=== PATIENT | male | born 1970 | race Caucasian/White ===

== ENCOUNTER → 2016-06-30 | Outpatient (CLI) | payer OTHER ==
[2016-06-30 12:25] LABS: MEAN CORPUSCULAR HGB CONC 34.2 g/dl (32.0-36.5); MEAN CORPUSCULAR VOLUME 96.4 fl (80.0-96.0); RED CELL DISTRIBUTION WIDTH 13.1 % (11.5-14.5); WHITE BLOOD COUNT 5.2 K/mm3 (4.0-10.0)
[2016-06-30 12:59] LABS: BLOOD UREA NITROGEN 13 MG/DL (7-18); CREATININE FOR GFR 1.12 MG/DL (0.70-1.30); GLUCOSE, FASTING 104 MG/DL (70-105)
[2016-06-30 13:00] LABS: ALBUMIN/GLOBULIN RATIO 1.08 (1.00-1.93); ALKALINE PHOSPHATASE 65 U/L (45-117); ALT/SGPT 22 U/L (12-78); ANION GAP 9 MEQ/L (8-16); AST/SGOT 17 U/L (15-37); BILIRUBIN,TOTAL 0.4 MG/DL (0.2-1.0); CALCIUM LEVEL 8.6 MG/DL (8.5-10.1); CARBON DIOXIDE LEVEL 23 MEQ/L (21-32); CHLORIDE LEVEL 110 MEQ/L (98-107); GLOMERULAR FILTRATION RATE > 60.0 (>60); POTASSIUM SERUM 4.2 MEQ/L (3.5-5.1); SODIUM LEVEL 142 MEQ/L (136-145); TOTAL PROTEIN 7.7 GM/DL (6.4-8.2)
== END ==
LOC: M LAB 11:25
PROVIDERS: ATTEND Family Medicine
DX: Z79.899 Other long term (current) drug therapy (principal)

== ENCOUNTER 2017-04-20 12:35 | Emergency (ER) | payer OTHER ==
[2017-04-20] MEDS: GABAPENTIN 300 MG CAP PO (14:25)
[2017-04-20] MEDS: PERCOCET 5MG/325MG TAB PO (14:26)
== END 2017-04-20 16:09 | disposition home or self-care (01) ==
LOC: M ED 12:35
DX: M54.12 Radiculopathy, cervical region (principal); F17.210 Nicotine dependence, cigarettes, uncomplicated; Z79.899 Other long term (current) drug therapy
CPT/HCPCS: 70490

== ENCOUNTER → 2017-06-10 | Outpatient (CLI) | payer OTHER | LOC: M LRY 12:52 | DX: M54.5 Low back pain (principal) | CPT/HCPCS: 72110 ==

== ENCOUNTER 2018-04-06 05:12 | Emergency (ER) | payer OTHER ==
[~2018-04-06] VITALS: Ht 180.3 cm; Wt 76.4 kg
[~2018-04-06 05:12] MED LIST: CLON1TAB8; HYDR-3713; IBUP-1022 PO; LORA-243; NEUR300C PO; PERC5TAB12 PO; TIZA-208
[2018-04-06] MEDS ORDERED: CETI10TA PO (05:29)
[2018-04-06] MEDS ORDERED: VENTAER INH ×2 (05:29→09:53)
[2018-04-06] MEDS ORDERED: NS 2,290 ML in APPROPRIATE DILUENT 1 EA IV ONE (05:45)
[2018-04-06 05:55] LABS: BASO % 0.2 % (0.0-1.0); EOS % 0.1 % (0.0-3.0); HEMATOCRIT 44.1 % (42.0-52.0); HEMOGLOBIN 15.6 g/dl (13.5-17.5); LYMPH # 0.6 10^3/uL (1.5-4.5); LYMPH % 6.9 % (24.0-44.0); MEAN CORPUSCULAR HEMOGLOBIN 32.2 pg (27.0-33.0); MEAN CORPUSCULAR HGB CONC 35.4 g/dl (32.0-36.5); MEAN CORPUSCULAR VOLUME 90.9 fl (80.0-96.0); MONO # 0.5 10^3/uL (0.0-0.8); MONO % 5.4 % (0.0-5.0); NEUTROPHILS # 8.1 10^3/uL (1.8-7.7); PLATELET COUNT, AUTOMATED 224 10^3/uL (150-450); RED BLOOD COUNT 4.85 10^6/uL (4.30-6.10); WHITE BLOOD COUNT 9.3 10^3/uL (4.0-10.0)
[2018-04-06] MEDS ORDERED: ACETAMINOPHEN TAB 650MG DOSE (2X325MG) PO ONE (06:00)
[2018-04-06] MEDS ORDERED: ACETAMINOPHEN 325 MG TAB As Ordered ONE (06:03)
[2018-04-06] MEDS ORDERED: ONDANSETRON 4MG/2ML VIAL (J2405) IV ONE (06:15)
[2018-04-06] MEDS ORDERED: IPRATROPIUM 0.5MG/ALBUTEROL 2.5MG INH SOL UD 3ML (DUONEB)(J7620) NEB ONE (06:15)
[2018-04-06 06:20] LABS: ALT/SGPT 36 U/L (12-78); BILIRUBIN,DIRECT < 0.1 MG/DL (0.0-0.2); BILIRUBIN,TOTAL 0.3 MG/DL (0.2-1.0); BLOOD UREA NITROGEN 7 MG/DL (7-18); CALCIUM LEVEL 8.5 MG/DL (8.5-10.1); CARBON DIOXIDE LEVEL 26 MEQ/L (21-32); CHLORIDE LEVEL 104 MEQ/L (98-107); CREATININE FOR GFR 1.08 MG/DL (0.70-1.30); GLOMERULAR FILTRATION RATE > 60.0 (>60); GLUCOSE, FASTING 91 MG/DL (70-100); POTASSIUM SERUM 3.8 MEQ/L (3.5-5.1); SODIUM LEVEL 138 MEQ/L (136-145); TOTAL PROTEIN 7.6 GM/DL (6.4-8.2)
[2018-04-06] MEDS ORDERED: AZITHROMYCIN INJ 500 MG, VIAL MATE ADAPTER 1 EACH in D5W 250 ML IV ONE (06:30)
[2018-04-06] MEDS ORDERED: cefTRIAXone SOD 1 GM in D5W MINI-BAG PLUS 50 ML IV ONE (06:30)
--- NOTE | 2018-04-06 06:49 | REPVR ---
EXAM: CT Head Without Contrast EXAM DATE/TIME: 04/06/2018 6:27 AM CLINICAL HISTORY: 47 years old, male; Pain; Headache; Headache not specified; Additional info: Severe headache TECHNIQUE: Axial computed tomography images of the head/brain without contrast. All CT scans at this facility use at least one of these dose optimization techniques: automated exposure control; mA and/or kV adjustment per patient size (includes targeted exams where dose is matched to clinical indication); or iterative reconstruction. COMPARISON: CT Head without contrast 09/03/2015 11:40 PM FINDINGS: Brain: Normal. No hemorrhage. No significant white matter disease. No edema. Ventricles: Normal. No ventriculomegaly. Bones/joints: Unremarkable. No acute fracture. Sinuses: Visualized sinuses are unremarkable. No acute sinusitis. Mastoid air cells: Visualized mastoid air cells are unremarkable. No mastoid effusion. Soft tissues: Unremarkable. IMPRESSION: Negative noncontrast head CT without change from 09/03/2015. Electronically signed by: Ryan Sevilla On 04/06/2018 06:49:25 AM
[2018-04-06] MEDS ORDERED: KETOROLAC 30 MG/ML VIAL (J1885) IV ONE (07:00)
--- NOTE | 2018-04-06 07:36 | REP ---
Clinical: Systemic inflammatory response syndrome . Comparison: 05/29/2009 . Technique: PA and lateral. Findings: The mediastinum and cardiac silhouette are normal. The lung marshall are clear and without acute consolidation, effusion, or pneumothorax. The skeletal structures are intact and normal. Impression: 1. No acute cardiopulmonary process. Electronically Signed by John Gutierrez MD 04/06/2018 07:28 A
[2018-04-06] MEDS ORDERED: OSEL75CA PO (08:26)
[2018-04-06] MEDS ORDERED: IBUP-1022 PO (08:26)
[2018-04-06] MEDS ORDERED: ONDA4TAB6 PO (08:26)
[2018-04-06] MEDS ORDERED: METOCLOPRAMIDE INJ 10MG/2ML VIAL (J2765) IV ONE (08:30)
[2018-04-06] MEDS ORDERED: diphenhydrAMINE INJ 50MG/ML VIAL (J1200) IV ONE (08:30)
[2018-04-06] MEDS ORDERED: clonazePAM 1 MG TAB PO ONE (08:45)
[2018-04-06] MEDS ORDERED: OSELTAMIVIR PHOSPHATE 75 MG CAP (TAMIFLU) PO ONE (08:45)
[2018-04-06 09:23] LABS: APPEARANCE, URINE CLEAR (CLEAR); BACTERIA, URINE AUTO NEGATIVE (NEGATIVE); BILIRUBIN, URINE AUTO NEGATIVE (NEGATIVE); BLOOD, URINE BLOOD NEGATIVE (NEGATIVE); COLOR, URINE YELLOW (YELLOW); GLUCOSE, URINE (UA) AUTO NEGATIVE (NEGATIVE); KETONE, URINE AUTO NEGATIVE (NEGATIVE); LEUKOCYTE ESTERASE, URINE AUTO NEGATIVE (NEGATIVE); MUCUS, URINE SMALL (NEGATIVE); NITRITE, URINE AUTO NEGATIVE (NEGATIVE); PROTEIN, URINE AUTO NEGATIVE (NEGATIVE); RBC, URINE AUTO 0 /HPF (0-3); SPECIFIC GRAVITY URINE AUTO 1.009 (1.002-1.035); SQUAMOUS EPITHELIAL CELL UR AU 0 /HPF (0-6); UROBILINOGEN, URINE AUTO 0.2 mg/dL (0.0-2.0); WBC, URINE AUTO 0 /HPF (0-3)
[2018-04-06 10:03] VITALS: BP 103/57
== END 2018-04-06 10:36 | disposition home or self-care (01) ==
LOC: M ED 05:12
DX: J09.X2 Influenza due to identified novel influenza A virus with other respiratory manifestations (principal); G43.909 Migraine, unspecified, not intractable, without status migrainosus; M54.9 Dorsalgia, unspecified; Z72.0 Tobacco use; Z79.899 Other long term (current) drug therapy; Z88.1 Allergy status to other antibiotic agents; Z91.041 Radiographic dye allergy status
CPT/HCPCS: 70450; 71046; 80048; 80076; 81001; 83605; 85025; 87040; 87086; 87486; 87581; 87633; 87798; 93041; 94640; 94760; 96374; 96375; 99285; J0456; J0696; J1200; J1885; J2405; J2765

== ENCOUNTER → 2018-08-07 | Outpatient (CLI) | payer MEDICAID ==
[~2018-08-07] MED LIST changes: +CETI10TA PO; +ONDA4TAB6 PO; +OSEL75CA PO; -TIZA-208; +TIZA4TAB4; +VENTAER INH
[2018-08-07 11:11] LABS: BASO % 0.5 % (0.0-1.0); EOS # 0.1 10^3/uL (0.0-0.50); EOS % 1.7 % (0.0-3.0); HEMOGLOBIN 16.3 g/dl (13.5-17.5); LYMPH # 1.8 10^3/uL (1.5-4.5); LYMPH % 27.2 % (24.0-44.0); MEAN CORPUSCULAR HEMOGLOBIN 33.3 pg (27.0-33.0); MEAN CORPUSCULAR HGB CONC 34.7 g/dl (32.0-36.5); MEAN CORPUSCULAR VOLUME 96.1 fl (80.0-96.0); MONO # 0.4 10^3/uL (0.0-0.8); MONO % 6.8 % (0.0-5.0); NEUTROPHILS # 4.1 10^3/uL (1.8-7.7); NEUTROPHILS % 63.6 % (36.0-66.0); PLATELET COUNT, AUTOMATED 246 10^3/uL (150-450); RED BLOOD COUNT 4.89 10^6/uL (4.30-6.10); WHITE BLOOD COUNT 6.5 10^3/uL (4.0-10.0)
[2018-08-07 11:38] LABS: ALBUMIN 4.1 GM/DL (3.2-5.2); ALT/SGPT 29 U/L (12-78); BILIRUBIN,TOTAL 0.2 MG/DL (0.2-1.0); BLOOD UREA NITROGEN 11 MG/DL (7-18); CALCIUM LEVEL 8.9 MG/DL (8.5-10.1); CARBON DIOXIDE LEVEL 27 MEQ/L (21-32); CHLORIDE LEVEL 108 MEQ/L (98-107); CREATININE FOR GFR 1.02 MG/DL (0.70-1.30); GLOMERULAR FILTRATION RATE > 60.0 (>60); GLUCOSE, FASTING 99 MG/DL (70-100); POTASSIUM SERUM 4.4 MEQ/L (3.5-5.1); SODIUM LEVEL 142 MEQ/L (136-145)
--- NOTE | 2018-08-10 22:50 | ECGEPIP ---
[facility] Test Date: 2018-08-07 Pat Name: RADHA GRIFFIN Department: Room: - Gender: Male Perinatal Tech: TRISTAN : 1970 Requested By: DANN AMBRIZ Order Number: [id number] Reading MD: Nate Lowry Measurements Intervals [place] Rate: 86 P: 73 MI: 166 QRS: 47 QRSD: 97 T: 44 QT: 359 QTc: 431 Interpretive Statements SINUS RHYTHM WITH SINUS ARRHYTHMIA LEFT ATRIAL ENLARGEMENT ST ELEVATION, PROBABLY EARLY REPOLARIZATION TALL T-WAVES, SUGGESTS HYPERKALEMIA No prior tracing in the system Electronically Signed on 08-10-2018 22:49:53 EDT by Nate Lowry
== END ==
LOC: M LAB 10:21
PROVIDERS: ATTEND Family Medicine
DX: Z01.818 Encounter for other preprocedural examination (principal); I51.7 Cardiomegaly

== ENCOUNTER 2018-08-11 10:23 | Day surgery (SDC) | payer MEDICAID, SELFPAY ==
[~2018-08-11] VITALS: Ht 177.8 cm; Wt 68.0 kg
[~2018-08-11 10:23] MED LIST changes: +LIDOCAINE 1% MDV 20ML VIAL SQ PRN; +LR 1,000 ML IV ONE
[2018-08-11] MEDS ORDERED: ONDANSETRON 4MG/2ML VIAL (J2405) As Ordered ONE (10:50)
[2018-08-11] MEDS ORDERED: ROCURONIUM BROMIDE 50 MG/5 ML VIAL As Ordered ONE (10:50)
[2018-08-11] MEDS ORDERED: LIDOCAINE 2% INJ 100 MG/5 ML SDV (FOR ANES.) As Ordered ONE (10:50)
[2018-08-11] MEDS ORDERED: PROPOFOL 200 MG/20 ML VIAL As Ordered ONE (10:50)
[2018-08-11] MEDS ORDERED: SUGAMMADEX SODIUM 500 MG/5 ML VIAL (BRIDION) As Ordered ONE (10:50)
[2018-08-11] MEDS ORDERED: dexameTHASONE 4 MG/ML 1ML VIAL (J1100) As Ordered ONE (10:50)
[2018-08-11] MEDS ORDERED: KETOROLAC 60 MG/2 ML VIAL (J1885) As Ordered ONE (10:50)
[2018-08-11] MEDS ORDERED: fentaNYL 250 MCG/5 ML INJECTION (J3010) As Ordered ONE (10:51)
[2018-08-11] MEDS ORDERED: MIDAZOLAM INJ 2 MG/2 ML VIAL (J2250) As Ordered ONE ×2 (10:51→11:31)
[2018-08-11] MEDS ORDERED: BUPIVACAINE/EPIN 0.25% 30 ML VIAL As Ordered ONE (11:30)
[2018-08-11] MEDS ORDERED: SCOPOLAMINE 1MG TRANSDERMAL PATCH As Ordered ONE (11:32)
[2018-08-11] MEDS ORDERED: SCOPOLAMINE 1MG TRANSDERMAL PATCH TOP ONE (11:45)
[2018-08-11] MEDS ORDERED: HYDROmorphone HCL 2 MG/ML 1ML VIAL (J1170) As Ordered ONE (12:14)
[2018-08-11] MEDS ORDERED: KETAMINE HCL 200 MG/20 ML VIAL As Ordered ONE (12:37)
[2018-08-11] MEDS ORDERED: MIDAZOLAM INJ 5 MG/ML VIAL (J2250) As Ordered ONE (12:38)
[2018-08-11] MEDS ORDERED: LR 1,000 ML IV SCH (13:45)
[2018-08-11] MEDS ORDERED: ONDANSETRON 4MG/2ML VIAL (J2405) IV PRN (13:45)
[2018-08-11] MEDS ORDERED: HYDROMORPHONE HCL 0.5 MG/ 0.5 ML SYRINGE (J1170 PER 1) IV PRN (13:45)
[2018-08-11] MEDS ORDERED: NORCO, ANEXSIA 5/325MG TABLET (HYDROcodone/ACETAMINOPHEN) PO PRN (14:00)
[2018-08-11] MEDS: PERCOCET 5MG/325MG TAB PO PRN ×2 (14:10→14:43)
--- NOTE | 2018-08-11 14:27 | RO ---
DATE OF PROCEDURE: 08/11/2018 PREOPERATIVE DIAGNOSIS: Right inguinal hernia. POSTOPERATIVE DIAGNOSIS: Right inguinal hernia. PROCEDURE: Robotic repair of right inguinal hernia. SURGEON: Dr. Parish Kong MUSIC MINISTER: Naye Graham ANESTHESIA: Genera. ESTIMATED BLOOD LOSS: 5. COMPLICATIONS: None. INDICATIONS FOR PROCEDURE: The patient is a 47-year-old male who presents with a large right inguinal hernia that is reducible. Recommendation is to proceed with robotic repair. Risks and benefits of the procedure not limited to, but including bleeding, infection, hernia recurrence, hernia formation, damage to surrounding structures, need for further surgery were discussed in detail with the patient and informed consent was obtained and the procedure was planned. DESCRIPTION OF PROCEDURE: The patient back to operating room seven and after sufficient sedation the abdomen was sterilely prepped and draped. Next a time-out was done to confirm proper patient and proper procedure. Following that, a stab incision was made in the left lower quadrant. The Veress needle was inserted and the abdomen was insufflated to 15 mmHg. Next, an 8 mm supraumbilical midline incision was made and the 8 mm robotic OptiVu port was used to gain access. Once the abdomen was entered, Veress needle site was examined and there were no signs of any injury. The Veress needle was then removed. Two more 8 mm ports were placed in the left and right midabdomen. The robot was then docked from the console. Started with a curved incision into peritoneum in the right lower quadrant, dissecting in the preperitoneal space, starting laterally and working medially circumferentially around the hernia sac and then medially all way down to the pubic symphysis. Once that was completed I continued to retract slowly on the hernia sac and dissecting it free circumferentially until it was completely reduced. Once that was completed, the Bard 3DMax light mesh was placed into the right preperitoneal space and sutured to the pubic symphysis with #2-0 Vicryl suture. The #2-0 V-Loc was then used to reapproximate the peritoneal edges incorporating the redundant hernia sac into the closure. Once this was all completed, the abdomen was examined and the abdomen was then desufflated. Skin incisions were closed with #4-0 Vicryl subcuticular sutures. The abdomen was cleaned and dried. Steri-Strips, 4x4 and tape were applied, thus ending the procedure.
[2018-08-11] MEDS: fentaNYL 100 MCG/2 ML INJECTION (J3010) IV PRN ×4 (14:29→14:45)
[2018-08-11 16:40] VITALS: BP 145/100
== END 2018-08-11 16:40 | disposition home or self-care (01) ==
LOC: M SDC 10:23
PROVIDERS: ATTEND Surgery
DX: K40.90 Unilateral inguinal hernia, without obstruction or gangrene, not specified as recurrent (principal); G43.909 Migraine, unspecified, not intractable, without status migrainosus; F41.9 Anxiety disorder, unspecified; F32.9 Major depressive disorder, single episode, unspecified; Z79.899 Other long term (current) drug therapy; Z79.51 Long term (current) use of inhaled steroids
CPT/HCPCS: 49650; C1781; J0690; J1100; J1170; J1885; J2250; J2405; J3010

== ENCOUNTER → 2019-03-06 | Outpatient (REF) | payer OTHER ==
[~2019-03-06] MED LIST changes: -LIDOCAINE 1% MDV 20ML VIAL SQ PRN; -LR 1,000 ML IV ONE
== END ==
LOC: M SFHCCLAY 13:07
PROVIDERS: ATTEND Family Medicine
DX: M54.5 Low back pain (principal)

== ENCOUNTER 2019-07-26 14:20 | Emergency (ER) | payer OTHER ==
[~2019-07-26] VITALS: Ht 180.3 cm; Wt 66.5 kg
[2019-07-26] MEDS ORDERED: IBUP80TA (14:27)
[2019-07-26] MEDS ORDERED: NORCO, ANEXSIA 5/325MG TABLET (HYDROcodone/ACETAMINOPHEN) PO ONE (15:30)
[2019-07-26 15:37] LABS: BASO # 0.1 10^3/uL (0.0-0.2); BASO % 0.9 % (0.0-1.0); EOS # 0.1 10^3/uL (0.0-0.5); EOS % 0.9 % (0.0-3.0); HEMATOCRIT 46.4 % (42.0-52.0); LYMPH % 30.7 % (24.0-44.0); MEAN CORPUSCULAR HEMOGLOBIN 31.9 pg (27.0-33.0); MEAN CORPUSCULAR HGB CONC 34.5 g/dl (32.0-36.5); MEAN CORPUSCULAR VOLUME 92.6 fl (80.0-96.0); MONO # 0.5 10^3/uL (0.0-0.8); MONO % 7.4 % (0.0-5.0); NEUTROPHILS # 3.8 10^3/uL (1.5-8.5); NEUTROPHILS % 59.9 % (36.0-66.0); PLATELET COUNT, AUTOMATED 277 10^3/uL (150-450); RED BLOOD COUNT 5.01 10^6/uL (4.30-6.10); WHITE BLOOD COUNT 6.4 10^3/uL (4.0-10.0)
--- NOTE | 2019-07-26 16:05 | REP ---
Two views right forearm: 07/26/2019. Indication: Pain following injury. Comparison: None. Findings: There is no acute fracture, subluxation or dislocation. Alignment is anatomic. No lytic or blastic lesions are present. Impression: No acute fracture. Electronically Signed by Devonte Thapa DO 07/26/2019 03:56 P
[2019-07-26 16:28] VITALS: BP 161/99
[2019-07-26] MEDS ORDERED: NORC1TAB7 PO (16:29)
[2019-07-26] MEDS ORDERED: NAPR-837 PO (16:29)
== END 2019-07-26 16:45 | disposition home or self-care (01) ==
LOC: M ED 14:20
DX: M65.231 Calcific tendinitis, right forearm (principal); J45.909 Unspecified asthma, uncomplicated; Z79.899 Other long term (current) drug therapy; Z88.1 Allergy status to other antibiotic agents; Z91.041 Radiographic dye allergy status; Z91.048 Other nonmedicinal substance allergy status; F17.210 Nicotine dependence, cigarettes, uncomplicated

== ENCOUNTER 2022-05-03 10:50 | Emergency (ER) | payer OTHER ==
[~2022-05-03] VITALS: Ht 180.3 cm; Wt 60.7 kg
[~2022-05-03 10:50] MED LIST changes: +IBUP80TA; +NAPR-837 PO; +NORC1TAB7 PO; +TIZA10TA; -TIZA4TAB4
[2022-05-03 13:38] LABS: BASO # 0.1 10^3/uL (0.0-0.2); BASO % 0.5 % (0.0-1.0); EOS # 0.1 10^3/uL (0.0-0.5); EOS % 0.7 % (0.0-3.0); HEMATOCRIT 46.1 % (42.0-52.0); HEMOGLOBIN 15.3 g/dl (13.5-17.5); LYMPH # 2.1 10^3/uL (1.5-5.0); LYMPH % 19.9 % (24.0-44.0); MEAN CORPUSCULAR HEMOGLOBIN 30.2 pg (27.0-33.0); MEAN CORPUSCULAR HGB CONC 33.2 g/dl (32.0-36.5); MEAN CORPUSCULAR VOLUME 91.1 fl (80.0-96.0); MONO # 0.4 10^3/uL (0.0-0.8); MONO % 3.7 % (2.0-8.0); NEUTROPHILS % 74.8 % (36.0-66.0); PLATELET COUNT, AUTOMATED 299 10^3/uL (150-450); RED BLOOD COUNT 5.06 10^6/uL (4.30-6.10); WHITE BLOOD COUNT 10.7 10^3/uL (4.0-10.0)
[2022-05-03 14:05] LABS: LIPASE 24 U/L (12-53)
[2022-05-03 14:08] LABS: ALBUMIN 4.5 G/DL (3.2-5.2); ALKALINE PHOSPHATASE 65 U/L (46-116); ALT/SGPT 9 U/L (7.0-40); AST/SGOT 13 U/L (<34); BILIRUBIN,DIRECT 0.1 MG/DL (<0.4); BILIRUBIN,TOTAL 0.4 MG/DL (0.3-1.2); BLOOD UREA NITROGEN 12 MG/DL (9-23); CALCIUM LEVEL 8.8 MG/DL (8.5-10.1); CARBON DIOXIDE LEVEL 28 MMOL/L (20-31); CHLORIDE LEVEL 104 MMOL/L (98-107); CREATININE FOR GFR 0.77 MG/DL (0.70-1.30); GLOMERULAR FILTRATION RATE > 60.0 (>60); GLUCOSE, FASTING 106 MG/DL (60-100); POTASSIUM SERUM 4.8 MMOL/L (3.5-5.1); SODIUM LEVEL 138 MMOL/L (136-145); TOTAL PROTEIN 7.8 G/DL (5.7-8.2)
[2022-05-03] MEDS ORDERED: SIMETHICONE 80MG CHEW TAB PO STA (16:09)
[2022-05-03] MEDS ORDERED: ALPRAZolam 0.5 MG TAB PO ONE (16:10)
[2022-05-03] MEDS ORDERED: MORPHINE 10 MG/ML 1ML VIAL IM ONE (18:45)
[2022-05-03] MEDS ORDERED: SIME80CH6 PO (19:40)
[2022-05-03 19:47] VITALS: BP 128/78
== END 2022-05-03 19:59 | disposition home or self-care (01) ==
LOC: M ED 10:50
DX: R10.32 Left lower quadrant pain (principal); Z88.1 Allergy status to other antibiotic agents; Z88.8 Allergy status to other drugs, medicaments and biological substances
CPT/HCPCS: 36415; 74176; 76857; 80048; 80076; 81001; 83690; 85025; 96372; 99284; J2270

== ENCOUNTER 2023-03-22 12:17 | Inpatient (IN) | payer MEDICAID, OTHER, SELFPAY ==
[~2023-03-22] VITALS: Ht 177.8 cm; Wt 54.0 kg
[~2023-03-22 12:17] MED LIST changes: +SIME80CH6 PO
[2023-03-22] MEDS: NS 1,000 ML IV ONE (12:57)
[2023-03-22 13:02] LABS: HEMOGLOBIN 12.4 g/dl (13.5-17.5); MEAN CORPUSCULAR HEMOGLOBIN 30.2 pg (27.0-33.0); MEAN CORPUSCULAR HGB CONC 34.4 g/dl (32.0-36.5); MEAN CORPUSCULAR VOLUME 87.8 fl (80.0-96.0); PLATELET COUNT, AUTOMATED 282 10^3/uL (150-450); WHITE BLOOD COUNT 10.2 10^3/uL (4.0-10.0)
[2023-03-22 13:22] LABS: D-DIMER QUANT 6.02 ug/mL (<0.5)
[2023-03-22 13:36] LABS: ALBUMIN 2.6 G/DL (3.2-5.2); ALKALINE PHOSPHATASE 65 U/L (46-116); ALT/SGPT 17 U/L (7.0-40); AST/SGOT 37 U/L (<34); BILIRUBIN,DIRECT < 0.1 MG/DL (<0.4); BILIRUBIN,TOTAL 0.2 MG/DL (0.3-1.2); BLOOD UREA NITROGEN 14 MG/DL (9-23); CALCIUM LEVEL 7.9 MG/DL (8.5-10.1); CARBON DIOXIDE LEVEL 27 MMOL/L (20-31); CHLORIDE LEVEL 104 MMOL/L (98-107); CK-MB VALUE MASS < 1.0 NG/ML (<3.6); CPK CREATINE PHOSPHOKINASE 34 U/L (46-171); CREATININE FOR GFR 0.67 MG/DL (0.70-1.30); GLOMERULAR FILTRATION RATE > 60.0 (>56); GLUCOSE, FASTING 115 MG/DL (60-100); LIPASE 14 U/L (12-53); MB/CK RELATIVE INDEX 2.94 (< OR =4); POTASSIUM SERUM 4.7 MMOL/L (3.5-5.1); SODIUM LEVEL 136 MMOL/L (136-145); TOTAL PROTEIN 6.2 G/DL (5.7-8.2)
[2023-03-22 13:43] LABS: ATYPICAL LYMPH 10 % (0-5); LYMPHOCYTES 3 % (16-44); MONOCYTES 5 % (0-5); NEUTROPHILS 82 % (28-66)
[2023-03-22 13:44] LABS: PLATELET ESTIMATE NORMAL (NORMAL); TOXIC GRANULATION 1+; TOXIC VACUOLATION 1+
[2023-03-22] MEDS ORDERED: IBUP200T46 PO (14:04)
[2023-03-22] MEDS ORDERED: HOME MED LIST COMPLETE! XX SCH (14:05)
[2023-03-22] MEDS: MORPHINE 4 MG/ML 1ML VIAL IV ONE ×2 (14:11→18:55)
[2023-03-22 14:54] LABS: INR 1.17; PROTHROMBIN TIME 14.5 SECONDS (12.5-14.5)
[2023-03-22 14:58] LABS: RSV AMPLIFICATION NEGATIVE (NEGATIVE)
[2023-03-22 14:59] LABS: PARTIAL THROMBOPLASTIN TIME 29.4 SECONDS (24.8-34.2)
[2023-03-22 15:01] LABS: CK-MB VALUE MASS < 1.0 NG/ML (<3.6); CPK CREATINE PHOSPHOKINASE 125 U/L (46-171)
[2023-03-22] MEDS: MAALOX 30 ML SUSP *UDC PO ONE (15:10)
[2023-03-22] MEDS: PANTOPRAZOLE 40MG VIAL IV ONE (15:10)
[2023-03-22] MEDS: diphenhydrAMINE 50MG/ML VIAL IV STA (16:40)
[2023-03-22] MEDS: methylPREDNISolone 125MG 2ML VIAL IV ONE (16:40)
[2023-03-22] MEDS ORDERED: ISOVUE-370 76% 100ML VIAL As Ordered ONE (17:18)
[2023-03-22] MEDS: PIPERACILLIN/TAZOBACTAM SOD 4.5 GM in D5W MINI-BAG PLUS 50 ML IV ONE (18:54)
[2023-03-22] MEDS: ONDANSETRON 4MG 2ML VIAL IV ONE (18:54)
[2023-03-22] MEDS: NS 1,000 ML IV SCH (18:54)
[2023-03-22 22:57] VITALS: BP 111/69; TEMP 99.6; O2SAT 98
[2023-03-22] MEDS: PANTOPRAZOLE 40MG VIAL IV SCH (23:26)
[2023-03-22] MEDS: PIPERACILLIN/TAZOBACTAM SOD 3.375 GM in D5W MINI-BAG PLUS 50 ML IV SCH (23:27)
[2023-03-22] MEDS: HYDROMORPHONE HCL 0.5 MG/ 0.5 ML SYRINGE IV PRN (23:27)
[2023-03-23] MEDS: LR 1,000 ML IV SCH (00:45)
[2023-03-23 05:45] LABS: BASO % 0.1 % (0.0-1.0); HEMATOCRIT 33.4 % (42.0-52.0); HEMOGLOBIN 11.5 g/dl (13.5-17.5); LYMPH # 0.9 10^3/uL (1.5-5.0); LYMPH % 11.8 % (24.0-44.0); MEAN CORPUSCULAR HGB CONC 34.4 g/dl (32.0-36.5); MEAN CORPUSCULAR VOLUME 87.2 fl (80.0-96.0); MONO # 0.2 10^3/uL (0.0-0.8); MONO % 2.9 % (2.0-8.0); NEUTROPHILS # 6.2 10^3/uL (1.5-8.5); NEUTROPHILS % 84.5 % (36.0-66.0); PLATELET COUNT, AUTOMATED 286 10^3/uL (150-450); RED BLOOD COUNT 3.83 10^6/uL (4.30-6.10); WHITE BLOOD COUNT 7.4 10^3/uL (4.0-10.0)
[2023-03-23 06:14] LABS: ALBUMIN 2.2 G/DL (3.2-5.2); ALKALINE PHOSPHATASE 56 U/L (46-116); ALT/SGPT 9 U/L (7.0-40); AST/SGOT 9 U/L (<34); BILIRUBIN,TOTAL 0.2 MG/DL (0.3-1.2); BLOOD UREA NITROGEN 17 MG/DL (9-23); CARBON DIOXIDE LEVEL 27 MMOL/L (20-31); CHLORIDE LEVEL 109 MMOL/L (98-107); CREATININE FOR GFR 0.73 MG/DL (0.70-1.30); GLOMERULAR FILTRATION RATE > 60.0 (>56); GLUCOSE, FASTING 127 MG/DL (60-100); MAGNESIUM LEVEL 1.8 MG/DL (1.8-2.4); PHOSPHORUS LEVEL 3.7 MG/DL (2.5-4.9); SODIUM LEVEL 141 MMOL/L (136-145); TOTAL PROTEIN 5.6 G/DL (5.7-8.2)
[2023-03-23] MEDS: ONDANSETRON 4MG 2ML VIAL IV PRN (06:15)
[2023-03-23 06:17] VITALS: BP 111/70; TEMP 98; O2SAT 99
[2023-03-23] MEDS: NICOTINE 21MG/24HR 1 EA TRANSDERMAL TD SCH (08:31)
[2023-03-23 10:00] VITALS: BP 109/68; TEMP 97.9; O2SAT 97
[2023-03-23] MEDS: HYDROMORPHONE HCL 0.5 MG/ 0.5 ML SYRINGE IV PRN (11:41)
[2023-03-23] MEDS ORDERED: LIDOCAINE 1% MDV 20ML VIAL As Ordered ONE (13:56)
[2023-03-23 14:00] VITALS: BP 105/66; TEMP 98.1; O2SAT 98
[2023-03-23 18:00] VITALS: BP 141/77; TEMP 98.4; O2SAT 94
[2023-03-23 21:58] VITALS: BP 145/77; TEMP 98.8; O2SAT 97
[2023-03-23] MEDS: HEPARIN SOD (PORCINE) 5000UNITS/ML 1ML VIAL/SYRINGE SC SCH (22:34)
[2023-03-23] MEDS: HYDROMORPHONE HCL 0.5 MG/ 0.5 ML SYRINGE IV ONE (23:11)
[2023-03-24 01:40] VITALS: BP 140/76; TEMP 98.4; O2SAT 97
[2023-03-24] MEDS ORDERED: HYDROMORPHONE HCL 0.5 MG/ 0.5 ML SYRINGE IV PRN (01:40)
[2023-03-24] MEDS: SENOKOT S TAB PO SCH (02:13)
[2023-03-24] MEDS: HYDROMORPHONE HCL 0.5 MG/ 0.5 ML SYRINGE IV PRN ×3 (02:14→23:56)
[2023-03-24 06:00] VITALS: BP 140/78; TEMP 98.1; O2SAT 98
[2023-03-24 06:25] LABS: BLOOD UREA NITROGEN 13 MG/DL (9-23); CARBON DIOXIDE LEVEL 28 MMOL/L (20-31); CHLORIDE LEVEL 108 MMOL/L (98-107); CREATININE FOR GFR 0.71 MG/DL (0.70-1.30); GLOMERULAR FILTRATION RATE > 60.0 (>56); GLUCOSE, FASTING 96 MG/DL (60-100); MAGNESIUM LEVEL 1.7 MG/DL (1.8-2.4); POTASSIUM SERUM 3.3 MMOL/L (3.5-5.1); SODIUM LEVEL 142 MMOL/L (136-145)
[2023-03-24 10:00] VITALS: BP 143/77; TEMP 98.2; O2SAT 99
[2023-03-24 14:00] VITALS: BP 143/77; TEMP 98.1; O2SAT 99
[2023-03-24] MEDS: MAG SULF 1GM/100ML (MAG RUN) 1 GM in IV 1 EA IV SCH (16:46)
[2023-03-24 17:11] VITALS: BP 144/77
[2023-03-24] MEDS ORDERED: fentaNYL 250 MCG/5 ML INJECTION As Ordered ONE (19:44)
[2023-03-24] MEDS ORDERED: MIDAZOLAM INJ 2MG/2ML VIAL As Ordered ONE (19:44)
[2023-03-24] MEDS ORDERED: LIDOCAINE 2% 100MG/5ML SDV (FOR ANES.) As Ordered ONE (19:49)
[2023-03-24] MEDS ORDERED: propofoL 200 MG/20 ML VIAL As Ordered ONE (19:49)
[2023-03-24] MEDS ORDERED: ROCURONIUM BROMIDE 50MG/5ML VIAL As Ordered ONE (19:49)
[2023-03-24] MEDS ORDERED: LIDOCAINE 1% SDV 30ML VIAL As Ordered ONE (19:57)
[2023-03-24] MEDS ORDERED: ACETAMINOPHEN 1000MG 100ML IV BAG As Ordered ONE (20:07)
[2023-03-24] MEDS ORDERED: KETOROLAC 60MG 2ML VIAL As Ordered ONE (20:07)
[2023-03-24] MEDS ORDERED: ONDANSETRON 4MG 2ML VIAL As Ordered ONE (20:07)
[2023-03-24] MEDS ORDERED: SUGAMMADEX SODIUM 500 MG/5 ML VIAL (BRIDION) As Ordered ONE (20:38)
[2023-03-24] MEDS ORDERED: ePHEDrine SULFATE 25 MG/5 ML(5MG/ML) SYRINGE As Ordered ONE (20:38)
[2023-03-24] MEDS ORDERED: fentaNYL 100 MCG/2 ML INJECTION As Ordered ONE (20:47)
[2023-03-24] MEDS ORDERED: HYDROmorphone HCL 2MG/ML 1ML VIAL As Ordered ONE (21:41)
[2023-03-24] MEDS ORDERED: fentaNYL 100 MCG/2 ML INJECTION IV PRN (23:15)
[2023-03-24] MEDS ORDERED: oxyCODONE 5MG TAB PO PRN (23:15)
[2023-03-24] MEDS ORDERED: ONDANSETRON 4MG 2ML VIAL IV PRN (23:15)
[2023-03-25] VITALS (10 sets, daily range): BP systolic 126–158; BP diastolic 78–89; TEMP 97.3–98.8; O2SAT 93–99
[2023-03-25] MEDS: LR 1,000 ML IV SCH (01:05)
[2023-03-25] MEDS: KETOROLAC 30 MG/ML 1ML VIAL IV SCH (01:05)
[2023-03-25] MEDS: KCL 10MEQ/100ML SWI (KRUN) 10 MEQ in IV 1 EA IV SCH (01:06)
[2023-03-25] MEDS: SIMETHICONE 80MG CHEW TAB PO ONE (05:12)
[2023-03-25 06:52] LABS: BLOOD UREA NITROGEN 15 MG/DL (9-23); CALCIUM LEVEL 7.6 MG/DL (8.5-10.1); CARBON DIOXIDE LEVEL 26 MMOL/L (20-31); CHLORIDE LEVEL 106 MMOL/L (98-107); CREATININE FOR GFR 0.72 MG/DL (0.70-1.30); GLOMERULAR FILTRATION RATE > 60.0 (>56); GLUCOSE, FASTING 99 MG/DL (60-100); POTASSIUM SERUM 3.8 MMOL/L (3.5-5.1); SODIUM LEVEL 139 MMOL/L (136-145)
[2023-03-25] MEDS ORDERED: oxyCODONE 5MG TAB PO PRN (09:45)
[2023-03-25] MEDS: HEPARIN SOD (PORCINE) 5000UNITS/ML 1ML VIAL/SYRINGE SC SCH (10:16)
[2023-03-25] MEDS: oxyCODONE 5MG TAB PO PRN (10:17)
[2023-03-25] MEDS: SUCRALFATE SUSP 1GM/10ML UD PO SCH (14:19)
[2023-03-25] MEDS: SIMETHICONE 80MG CHEW TAB PO PRN (14:19)
[2023-03-25] MEDS: ACETAMINOPHEN TAB 650MG DOSE (2X325MG) PO PRN (18:27)
[2023-03-26] MEDS: RAMELTEON 8 MG TAB (ROZEREM) PO PRN (01:08)
[2023-03-26 02:00] VITALS: BP 112/58; TEMP 98.1; O2SAT 97
[2023-03-26 05:28] VITALS: BP 132/75; TEMP 99.2; O2SAT 99
[2023-03-26 06:36] LABS: BLOOD UREA NITROGEN 7 MG/DL (9-23); CALCIUM LEVEL 7.6 MG/DL (8.5-10.1); CARBON DIOXIDE LEVEL 25 MMOL/L (20-31); CHLORIDE LEVEL 104 MMOL/L (98-107); GLOMERULAR FILTRATION RATE > 60.0 (>56); GLUCOSE, FASTING 101 MG/DL (60-100); MAGNESIUM LEVEL 1.7 MG/DL (1.8-2.4); SODIUM LEVEL 136 MMOL/L (136-145)
[2023-03-26] MEDS: POTASSIUM CHLORIDE 10MEQ SR TABLET PO ONE (08:45)
[2023-03-26] MEDS: MAGNESIUM OXIDE 400MG TAB (MAG-OX) PO SCH (08:45)
[2023-03-26] MEDS: MAG SULF 1GM/100ML (MAG RUN) 1 GM in IV 1 EA IV SCH (08:46)
[2023-03-26 10:00] VITALS: BP 134/77; TEMP 98.2; O2SAT 97
[2023-03-26] MEDS: ALPRAZolam 0.5 MG TAB PO PRN (10:03)
[2023-03-26] MEDS: SUCRALFATE SUSP 1GM/10ML UD PO SCH (11:20)
[2023-03-26] MEDS: POTASSIUM CHLORIDE 10MEQ SR TABLET PO SCH (11:22)
[2023-03-26] MEDS ORDERED: SUCRALFATE 1 GM TAB PO SCH (13:00)
[2023-03-26 14:00] VITALS: BP 118/69; TEMP 98.8; O2SAT 97
[2023-03-26 18:00] VITALS: BP 162/88; TEMP 98.4; O2SAT 98
[2023-03-26 19:50] VITALS: BP 149/87; TEMP 99.3; O2SAT 98
[2023-03-27 02:20] VITALS: BP 145/88; TEMP 98.1; O2SAT 97
[2023-03-27 05:00] VITALS: BP 145/88; TEMP 98.2; O2SAT 98
[2023-03-27 06:39] LABS: BLOOD UREA NITROGEN 9 MG/DL (9-23); CALCIUM LEVEL 7.8 MG/DL (8.5-10.1); CARBON DIOXIDE LEVEL 26 MMOL/L (20-31); CHLORIDE LEVEL 107 MMOL/L (98-107); GLOMERULAR FILTRATION RATE > 60.0 (>56); GLUCOSE, FASTING 102 MG/DL (60-100); MAGNESIUM LEVEL 1.9 MG/DL (1.8-2.4); POTASSIUM SERUM 3.5 MMOL/L (3.5-5.1); SODIUM LEVEL 139 MMOL/L (136-145)
[2023-03-27 08:07] LABS: BASO % 0.1 % (0.0-1.0); EOS % 0.2 % (0.0-3.0); HEMOGLOBIN 12.3 g/dl (13.5-17.5); LYMPH # 1.5 10^3/uL (1.5-5.0); LYMPH % 16.5 % (24.0-44.0); MEAN CORPUSCULAR HEMOGLOBIN 30.4 pg (27.0-33.0); MEAN CORPUSCULAR HGB CONC 35.1 g/dl (32.0-36.5); MEAN CORPUSCULAR VOLUME 86.4 fl (80.0-96.0); MONO # 0.6 10^3/uL (0.0-0.8); MONO % 6.4 % (2.0-8.0); NEUTROPHILS # 6.8 10^3/uL (1.5-8.5); NEUTROPHILS % 76.5 % (36.0-66.0); PLATELET COUNT, AUTOMATED 385 10^3/uL (150-450); RED BLOOD COUNT 4.05 10^6/uL (4.30-6.10); WHITE BLOOD COUNT 8.9 10^3/uL (4.0-10.0)
[2023-03-27 10:00] VITALS: BP 133/82; TEMP 98.6; O2SAT 98
[2023-03-27 14:00] VITALS: BP 133/83; TEMP 98.6; O2SAT 98
[2023-03-27 22:00] VITALS: BP 127/85; TEMP 98.6; O2SAT 96
[2023-03-27] MEDS ORDERED: HYDROMORPHONE HCL 0.5 MG/ 0.5 ML SYRINGE IV PRN (22:00)
[2023-03-28] MEDS: LORazepam 2 MG/ML 1ML VIAL IV PRN (00:55)
[2023-03-28 05:42] VITALS: BP 128/84; TEMP 100.1; O2SAT 96
[2023-03-28 06:03] LABS: BASO % 0.1 % (0.0-1.0); EOS % 0.1 % (0.0-3.0); HEMATOCRIT 35.6 % (42.0-52.0); HEMOGLOBIN 12.3 g/dl (13.5-17.5); LYMPH # 1.3 10^3/uL (1.5-5.0); LYMPH % 11.8 % (24.0-44.0); MEAN CORPUSCULAR HEMOGLOBIN 29.9 pg (27.0-33.0); MEAN CORPUSCULAR HGB CONC 34.6 g/dl (32.0-36.5); MEAN CORPUSCULAR VOLUME 86.6 fl (80.0-96.0); MONO # 0.4 10^3/uL (0.0-0.8); MONO % 4.1 % (2.0-8.0); NEUTROPHILS # 8.8 10^3/uL (1.5-8.5); NEUTROPHILS % 83.6 % (36.0-66.0); PLATELET COUNT, AUTOMATED 430 10^3/uL (150-450); RED BLOOD COUNT 4.11 10^6/uL (4.30-6.10); WHITE BLOOD COUNT 10.6 10^3/uL (4.0-10.0)
[2023-03-28] MEDS: HYDROMORPHONE HCL 0.5 MG/ 0.5 ML SYRINGE IV PRN (06:12)
[2023-03-28 06:25] LABS: BLOOD UREA NITROGEN 18 MG/DL (9-23); CALCIUM LEVEL 7.9 MG/DL (8.5-10.1); CARBON DIOXIDE LEVEL 27 MMOL/L (20-31); CHLORIDE LEVEL 106 MMOL/L (98-107); CREATININE FOR GFR 0.85 MG/DL (0.70-1.30); GLOMERULAR FILTRATION RATE > 60.0 (>56); GLUCOSE, FASTING 83 MG/DL (60-100); POTASSIUM SERUM 3.9 MMOL/L (3.5-5.1); SODIUM LEVEL 138 MMOL/L (136-145)
[2023-03-28 10:00] VITALS: BP 116/69; TEMP 98.4; O2SAT 98
[2023-03-28] MEDS ORDERED: PERCOCET 5MG/325MG TAB PO PRN (11:20)
[2023-03-28] MEDS: PERCOCET 5MG/325MG TAB PO PRN (12:17)
[2023-03-28 14:00] VITALS: BP 113/70; TEMP 98.6; O2SAT 97
[2023-03-28] MEDS: ALPRAZolam 0.25 MG TAB PO PRN (18:18)
[2023-03-28 20:10] VITALS: BP 108/68; TEMP 98.2; O2SAT 97
[2023-03-29 05:06] VITALS: BP 115/73; TEMP 98.1; O2SAT 99
[2023-03-29 08:07] LABS: HEMATOCRIT 32.1 % (42.0-52.0); HEMOGLOBIN 11.1 g/dl (13.5-17.5); LYMPH # 1.3 10^3/uL (1.5-5.0); LYMPH % 17.4 % (24.0-44.0); MEAN CORPUSCULAR HEMOGLOBIN 30.4 pg (27.0-33.0); MEAN CORPUSCULAR HGB CONC 34.6 g/dl (32.0-36.5); MEAN CORPUSCULAR VOLUME 87.9 fl (80.0-96.0); MONO # 0.4 10^3/uL (0.0-0.8); MONO % 4.9 % (2.0-8.0); NEUTROPHILS # 5.6 10^3/uL (1.5-8.5); NEUTROPHILS % 77.4 % (36.0-66.0); PLATELET COUNT, AUTOMATED 424 10^3/uL (150-450); RED BLOOD COUNT 3.65 10^6/uL (4.30-6.10); WHITE BLOOD COUNT 7.2 10^3/uL (4.0-10.0)
[2023-03-29] MEDS: SENNA 8.6 MG TAB (SENOKOT) PO SCH (08:16)
[2023-03-29 08:28] LABS: BLOOD UREA NITROGEN 17 MG/DL (9-23); CALCIUM LEVEL 7.6 MG/DL (8.5-10.1); CARBON DIOXIDE LEVEL 27 MMOL/L (20-31); CHLORIDE LEVEL 106 MMOL/L (98-107); CREATININE FOR GFR 0.84 MG/DL (0.70-1.30); GLOMERULAR FILTRATION RATE > 60.0 (>56); GLUCOSE, FASTING 103 MG/DL (60-100); MAGNESIUM LEVEL 1.9 MG/DL (1.8-2.4); POTASSIUM SERUM 3.7 MMOL/L (3.5-5.1); SODIUM LEVEL 137 MMOL/L (136-145)
[2023-03-29] MEDS ORDERED: SALIVA SUBSTITUTE(MOUTHKOTE) BTL MT PRN (10:55)
[2023-03-29 14:00] VITALS: BP 109/72; TEMP 98.8; O2SAT 96
[2023-03-29] MEDS: CHLORASEPTIC SPRAY MT PRN (15:29)
[2023-03-29] MEDS ORDERED: CEFD1CAP9 PO (17:52)
[2023-03-29] MEDS ORDERED: METR-265 PO (17:54)
[2023-03-29] MEDS ORDERED: SUCR1TA PO (18:01)
[2023-03-29] MEDS ORDERED: PANT40TA29 PO (18:01)
== END 2023-03-29 18:17 | disposition left against medical advice (07) | DRG 221 ==
LOC: M ED 12:17 → EDBD 12:17 → M ED INP 21:17 → ENRESERV 21:29 → M MSPAV 22:52
PROVIDERS: ADMIT Internal Medicine; ATTEND Internal Medicine Nephrology
PROC: 0DTJ0ZZ Resection of Appendix, Open Approach (ICD-10-PCS; 2023-03-24)
PROC: 0DBB0ZZ Excision of Ileum, Open Approach (ICD-10-PCS; principal; 2023-03-24 17:00)
PROC: 0DBH0ZZ Excision of Cecum, Open Approach (ICD-10-PCS; 2023-03-24 17:00)
DX: K35.33 Acute appendicitis with perforation, localized peritonitis, and gangrene, with abscess (principal); E43 Unspecified severe protein-calorie malnutrition; K76.0 Fatty (change of) liver, not elsewhere classified; J43.9 Emphysema, unspecified; F17.210 Nicotine dependence, cigarettes, uncomplicated; K59.00 Constipation, unspecified; F41.9 Anxiety disorder, unspecified; R91.1 Solitary pulmonary nodule; M54.50 Low back pain, unspecified; G89.29 Other chronic pain; K20.90 Esophagitis, unspecified without bleeding; Z88.1 Allergy status to other antibiotic agents; Z91.041 Radiographic dye allergy status; Z91.048 Other nonmedicinal substance allergy status; Z20.822 Contact with and (suspected) exposure to COVID-19; Z53.31 Laparoscopic surgical procedure converted to open procedure; K91.89 Other postprocedural complications and disorders of digestive system

== ENCOUNTER 2023-06-27 17:04 | Inpatient (IN) | payer MEDICAID, SELFPAY ==
[~2023-06-27] VITALS: Ht 180.3 cm; Wt 51.5 kg
[~2023-06-27 17:04] MED LIST changes: +CEFD1CAP9 PO; +IBUP200T46 PO; +METR-265 PO; +PANT40TA29 PO; +SUCR1TA PO
[2023-06-27] MEDS: NS 1,000 ML IV SCH (18:50)
[2023-06-27] MEDS: methylPREDNISolone 125MG 2ML VIAL IV ONE (18:51)
[2023-06-27] MEDS: diphenhydrAMINE 50MG/ML VIAL IV ONE (18:51)
[2023-06-27] MEDS: MORPHINE 4 MG/ML 1ML VIAL IV ONE (18:51)
[2023-06-27 18:56] LABS: HEMATOCRIT 44.3 % (42.0-52.0); HEMOGLOBIN 16.1 g/dl (13.5-17.5); LYMPH # 1.2 10^3/uL (1.5-5.0); MEAN CORPUSCULAR HEMOGLOBIN 30.5 pg (27.0-33.0); MEAN CORPUSCULAR HGB CONC 36.3 g/dl (32.0-36.5); MEAN CORPUSCULAR VOLUME 83.9 fl (80.0-96.0); MONO # 0.2 10^3/uL (0.0-0.8); MONO % 2.6 % (2.0-8.0); NEUTROPHILS # 4.7 10^3/uL (1.5-8.5); NEUTROPHILS % 78.2 % (36.0-66.0); PLATELET COUNT, AUTOMATED 236 10^3/uL (150-450); RED BLOOD COUNT 5.28 10^6/uL (4.30-6.10); WHITE BLOOD COUNT 6.1 10^3/uL (4.0-10.0)
[2023-06-27 19:27] LABS: LIPASE 105 U/L (12-53)
[2023-06-27] MEDS: READI-CAT 2 PO SCH (19:30)
[2023-06-27 19:33] LABS: ALBUMIN 4.6 G/DL (3.2-5.2); ALKALINE PHOSPHATASE 65 U/L (46-116); ALT/SGPT 23 U/L (7.0-40); AST/SGOT 19 U/L (<34); BILIRUBIN,DIRECT 0.2 MG/DL (<0.4); BILIRUBIN,TOTAL 0.7 MG/DL (0.3-1.2); BLOOD UREA NITROGEN 21 MG/DL (9-23); CALCIUM LEVEL 10.3 MG/DL (8.5-10.1); CARBON DIOXIDE LEVEL 27 MMOL/L (20-31); CHLORIDE LEVEL 101 MMOL/L (98-107); CREATININE FOR GFR 0.73 MG/DL (0.70-1.30); GLOMERULAR FILTRATION RATE > 60.0 (>56); GLUCOSE, FASTING 107 MG/DL (60-100); POTASSIUM SERUM 3.7 MMOL/L (3.5-5.1); SODIUM LEVEL 138 MMOL/L (136-145); TOTAL PROTEIN 8.2 G/DL (5.7-8.2)
[2023-06-27] MEDS: THIAMINE 100 MG TAB PO SCH (21:00)
[2023-06-27] MEDS: AUGMENTIN 875 MG TAB PO SCH (21:00)
[2023-06-27] MEDS ORDERED: ISOVUE-370 76% 100ML VIAL As Ordered ONE (21:06)
[2023-06-27] MEDS ORDERED: GNP50LIQ PO (21:58)
[2023-06-27] MEDS ORDERED: MULT-90 PO (21:58)
[2023-06-27] MEDS ORDERED: HOME MED LIST COMPLETE! XX SCH (22:00)
[2023-06-27] MEDS: AUGMENTIN 875 MG TAB PO ONE (22:11)
[2023-06-27 23:28] LABS: ETHYL ALCOHOL (ETHANOL) 0.004 % (0.000-0.010)
[2023-06-28] MEDS ORDERED: ONDANSETRON 4MG 2ML VIAL IV PRN (00:10)
[2023-06-28] MEDS ORDERED: HYDROMORPHONE HCL 0.5 MG/ 0.5 ML SYRINGE IV PRN (00:10)
[2023-06-28] MEDS ORDERED: MOM 30ML SUSPENSION UDC PO PRN (00:10)
[2023-06-28] MEDS: LR 1,000 ML IV SCH (00:52)
[2023-06-28] MEDS: HYDROMORPHONE HCL 0.5 MG/ 0.5 ML SYRINGE IV PRN (00:53)
[2023-06-28 02:52] LABS: BARBITURATES URINE NEGATIVE (NEGATIVE); BENZODIAZEPINES URINE NEGATIVE (NEGATIVE); COCAINE METABOLITE URINE NEGATIVE (NEGATIVE); METHADONE URINE NEGATIVE (NEGATIVE)
[2023-06-28 02:53] LABS: PHENCYCLIDINE URINE NEGATIVE (NEGATIVE)
[2023-06-28 02:57] VITALS: BP 137/72; TEMP 97.7; O2SAT 96
[2023-06-28 02:59] LABS: AMPHETAMINES LEVEL URINE POSITIVE (NEGATIVE); CANNABINOIDS URINE POSITIVE (NEGATIVE); OPIATES URINE POSITIVE (NEGATIVE)
[2023-06-28] MEDS: PANTOPRAZOLE 40MG VIAL IV SCH (03:25)
[2023-06-28] MEDS: ALPRAZolam 0.25 MG TAB PO PRN (03:26)
[2023-06-28 06:00] VITALS: BP 120/76; TEMP 98.6; O2SAT 96
[2023-06-28] MEDS: LORazepam 2 MG TAB PO PRN (06:24)
[2023-06-28 07:59] LABS: C REACTIVE PROTEIN QUANTITATIV < 0.40 MG/DL (<1.0)
[2023-06-28] MEDS ORDERED: MORPHINE 2 MG/ML 1ML VIAL IV PRN (08:00)
[2023-06-28 08:04] LABS: ALBUMIN 3.6 G/DL (3.2-5.2); ALKALINE PHOSPHATASE 51 U/L (46-116); ALT/SGPT 18 U/L (7.0-40); AST/SGOT 14 U/L (<34); BILIRUBIN,TOTAL 0.7 MG/DL (0.3-1.2); BLOOD UREA NITROGEN 22 MG/DL (9-23); CALCIUM LEVEL 8.9 MG/DL (8.5-10.1); CARBON DIOXIDE LEVEL 24 MMOL/L (20-31); CHLORIDE LEVEL 103 MMOL/L (98-107); CREATININE FOR GFR 0.75 MG/DL (0.70-1.30); GLOMERULAR FILTRATION RATE > 60.0 (>56); GLUCOSE, FASTING 120 MG/DL (60-100); MAGNESIUM LEVEL 1.7 MG/DL (1.8-2.4); POTASSIUM SERUM 3.9 MMOL/L (3.5-5.1); SODIUM LEVEL 136 MMOL/L (136-145); TOTAL PROTEIN 6.4 G/DL (5.7-8.2)
[2023-06-28] MEDS: MULTIVITAMINS/MINERALS THERAP 1 TAB PO SCH (08:16)
[2023-06-28] MEDS: DOCUSATE SODIUM 100MG CAPSULE PO SCH (08:16)
[2023-06-28] MEDS: AUGMENTIN 875 MG TAB PO SCH (08:16)
[2023-06-28] MEDS: FOLIC ACID 1MG TAB PO SCH (08:17)
[2023-06-28] MEDS: ENOXAPARIN 40MG/0.4ML SYRINGE (J1650 PER 10MG) SC SCH (08:17)
[2023-06-28 08:22] VITALS: BP 112/73
[2023-06-28 08:23] LABS: HEMATOCRIT 38.3 % (42.0-52.0); MEAN CORPUSCULAR HEMOGLOBIN 30.2 pg (27.0-33.0); MEAN CORPUSCULAR HGB CONC 35.8 g/dl (32.0-36.5); MEAN CORPUSCULAR VOLUME 84.4 fl (80.0-96.0); PLATELET COUNT, AUTOMATED 205 10^3/uL (150-450); RED BLOOD COUNT 4.54 10^6/uL (4.30-6.10); WHITE BLOOD COUNT 4.8 10^3/uL (4.0-10.0)
[2023-06-28 08:31] LABS: HEMOGLOBIN 13.7 g/dl (13.5-17.5)
[2023-06-28] MEDS: PERCOCET 5MG/325MG TAB PO PRN (13:59)
[2023-06-28] MEDS: MAALOX 30 ML SUSP *UDC PO PRN (19:58)
[2023-06-28 20:00] VITALS: BP 130/68
[2023-06-28] MEDS: MAGNESIUM OXIDE 400MG TAB (MAG-OX) PO SCH (20:02)
[2023-06-28 21:00] VITALS: BP 117/70; TEMP 99.1; O2SAT 98
[2023-06-29] MEDS: NICOTINE 21MG/24HR 1 EA TRANSDERMAL TD PRN (02:45)
[2023-06-29] MEDS: traZODone 50 MG TAB PO PRN (02:53)
[2023-06-29 06:00] VITALS: BP 121/73; TEMP 98.1; O2SAT 97
[2023-06-29 06:05] LABS: HEMATOCRIT 36.5 % (42.0-52.0); MEAN CORPUSCULAR HEMOGLOBIN 30.1 pg (27.0-33.0); MEAN CORPUSCULAR HGB CONC 35.6 g/dl (32.0-36.5); MEAN CORPUSCULAR VOLUME 84.5 fl (80.0-96.0); PLATELET COUNT, AUTOMATED 160 10^3/uL (150-450); RED BLOOD COUNT 4.32 10^6/uL (4.30-6.10); WHITE BLOOD COUNT 6.2 10^3/uL (4.0-10.0)
[2023-06-29 06:40] LABS: ALBUMIN 3.3 G/DL (3.2-5.2); ALKALINE PHOSPHATASE 47 U/L (46-116); ALT/SGPT 17 U/L (7.0-40); AST/SGOT 13 U/L (<34); BILIRUBIN,TOTAL 0.8 MG/DL (0.3-1.2); BLOOD UREA NITROGEN 16 MG/DL (9-23); CALCIUM LEVEL 8.3 MG/DL (8.5-10.1); CARBON DIOXIDE LEVEL 23 MMOL/L (20-31); CHLORIDE LEVEL 108 MMOL/L (98-107); CREATININE FOR GFR 0.72 MG/DL (0.70-1.30); GLOMERULAR FILTRATION RATE > 60.0 (>56); GLUCOSE, FASTING 96 MG/DL (60-100); POTASSIUM SERUM 3.6 MMOL/L (3.5-5.1); SODIUM LEVEL 137 MMOL/L (136-145); TOTAL PROTEIN 5.7 G/DL (5.7-8.2); TRIGLYCERIDES LEVEL 65 MG/DL (<150)
[2023-06-29] MEDS: SUCRALFATE SUSP 1GM/10ML UD PO SCH (11:47)
[2023-06-29] MEDS: ACETAMINOPHEN TAB 650MG DOSE (2X325MG) PO PRN (11:50)
[2023-06-29] MEDS ORDERED: PANT40TA29 PO (12:00)
[2023-06-29] MEDS ORDERED: COLA100C5 PO (12:00)
[2023-06-29] MEDS ORDERED: SUCR1TA PO (12:00)
[2023-06-29] MEDS ORDERED: AMOX875T2 PO (12:00)
[2023-06-29] MEDS ORDERED: MAGN400T2 PO (12:00)
[2023-06-29] MEDS ORDERED: ACET1TAB55 PO (12:03)
[2023-06-29 13:01] VITALS: BP 124/73
[2023-06-29] MEDS ORDERED: PANTOPRAZOLE 40MG TAB (PROTONIX) PO SCH (21:00)
== END 2023-06-29 13:55 | disposition home or self-care (01) | DRG 282 ==
LOC: M ED 17:04 → M ED INP 22:52 → M MS5PR 06-28 02:50
PROVIDERS: ADMIT Family Medicine; ATTEND Internal Medicine
DX: K85.90 Acute pancreatitis without necrosis or infection, unspecified (principal); E46 Unspecified protein-calorie malnutrition; J43.9 Emphysema, unspecified; K21.9 Gastro-esophageal reflux disease without esophagitis; F41.9 Anxiety disorder, unspecified; Z68.1 Body mass index [BMI] 19.9 or less, adult; R91.1 Solitary pulmonary nodule; F17.200 Nicotine dependence, unspecified, uncomplicated; M54.50 Low back pain, unspecified; G89.29 Other chronic pain; F32.A Depression, unspecified; Z88.1 Allergy status to other antibiotic agents; Z91.040 Latex allergy status; Z91.048 Other nonmedicinal substance allergy status; K04.7 Periapical abscess without sinus